=== PATIENT | female | born 1955 | race Caucasian/White ===

== ENCOUNTER 2016-12-13 09:30 | Inpatient (IN) | payer BC ==
[2016-12-11 16:01] VITALS: BMI 35.3
[2016-12-24] MEDS ORDERED: MIDAZOLAM HCL 2 MG/2 ML SINGLE DOSE VIAL ONE (12:04)
[2016-12-24] MEDS ORDERED: BUPIVACAINE HCL/PF 0.25% (2.5MG/ML) 10 ML VIAL ONE ×2 (12:50→15:32)
[2016-12-24] MEDS ORDERED: LEVOFLOXACIN 500 MG PREMIX BAG IVPB ONE (13:55)
[2016-12-24] MEDS ORDERED: SUCCINYLCHOLINE CHLORIDE 200 MG/10 ML VIAL ONE (14:13)
[2016-12-24] MEDS ORDERED: ROCURONIUM BROMIDE 50 MG/5 ML VIAL ONE (14:29)
[2016-12-24] MEDS ORDERED: HYDROmorphone HCL/PF 1 MG/ML VIAL (FOR PYXIS CHARGING ONLY) ONE (15:12)
[2016-12-24] MEDS ORDERED: BUPIVACAINE HCL/PF 0.25% (2.5MG/ML) 10 ML VIAL IJ ONE ×2 (15:34)
[2016-12-24] MEDS ORDERED: ONDANSETRON 4 MG/2 ML VIAL IVPUSH PRN (15:57)
[2016-12-24] MEDS ORDERED: ONDANSETRON 4 MG/2 ML VIAL IVPB PRN (15:58)
[2016-12-24] MEDS ORDERED: LABETALOL HCL 5 MG/1 ML (100MG/20 ML VIAL) IVPUSH ONE ×2 (15:59→17:08)
[2016-12-24] MEDS ORDERED: LACTATED RINGERS SOLUTION 1,000 ML IV SCH (16:00)
[2016-12-24] MEDS ORDERED: SODIUM CHLORIDE 1,000 ML IV SCH (16:00)
[2016-12-24] MEDS ORDERED: PROMETHAZINE HCL 25 MG/1 ML VIAL IVPB PRN (16:04)
[2016-12-24] MEDS ORDERED: HYDROmorphone HCL CARPU-JECT 2 MG/1 ML DISP.SYRIN ONE (16:41)
[2016-12-24] MEDS: HYDROmorphone HCL CARPU-JECT 1 MG/1 ML DISP.SYRIN IVPUSH PRN ×2 (16:43→16:53)
[2016-12-24 16:50] LABS: MCH 26.9 pg (25.7-33.7); MCHC 33.3 g/dl (32.0-36.0); MEAN CELL VOLUME 80.9 fl (80-96); MEAN PLT VOLUME 9.6 fl (7.5-11.1); PLATELET COUNT 209 K/MM3 (134-434); RDW 14.2 % (11.6-15.6)
[2016-12-24 17:28] LABS: ALBUMIN 3.3 g/dl (3.4-5.0); ALK PHOS 67 U/L (45-117); ANION GAP 9 (8-16); BILIRUBIN,TOTAL 0.4 mg/dL (0.2-1.0); CALCIUM 8.3 mg/dL (8.5-10.1); CO2 27 mmol/L (21-32); CREATININE 0.7 mg/dL (0.55-1.02); GLUCOSE,RANDOM 190 mg/dL (74-106); SGOT/AST 60 U/L (15-37); SGPT/ALT 56 U/L (12-78)
[2016-12-24] MEDS ORDERED: METOCLOPRAMIDE HCL INJECTION 10 MG/2 ML VIAL ONE (17:37)
[2016-12-24] MEDS: METOCLOPRAMIDE HCL INJECTION 10 MG/2 ML VIAL IVPB SCH ×3 (17:50→22:19)
[2016-12-24] MEDS: HYDROmorphone HCL CARPU-JECT 1 MG/1 ML DISP.SYRIN IVPB PRN (20:59)
[2016-12-24] MEDS: ENOXAPARIN NA (PORCINE) 40 MG/0.4 ML DISP.SYRIN SQ SCH (22:18)
[2016-12-24] MEDS: FAMOTIDINE 20 MG/50 ML IVPB 50 ML IVPB SCH (22:19)
[2016-12-25] MEDS: HYDROmorphone HCL CARPU-JECT 1 MG/1 ML DISP.SYRIN IVPB PRN ×3 (01:07→09:18)
[2016-12-25 07:20] LABS: MCH 26.4 pg (25.7-33.7); MCHC 32.6 g/dl (32.0-36.0); MEAN CELL VOLUME 80.9 fl (80-96); MEAN PLT VOLUME 9.6 fl (7.5-11.1); PLATELET COUNT 199 K/MM3 (134-434); RDW 14.3 % (11.6-15.6)
[2016-12-25 07:32] LABS: ALBUMIN 3.1 g/dl (3.4-5.0); BILIRUBIN,TOTAL 0.5 mg/dL (0.2-1.0); GLUCOSE,RANDOM 164 mg/dL (74-106); SGOT/AST 41 U/L (15-37)
[2016-12-25 07:34] LABS: ALK PHOS 57 U/L (45-117); ANION GAP 7 (8-16); CO2 29 mmol/L (21-32); CREATININE 0.8 mg/dL (0.55-1.02); SGPT/ALT 44 U/L (12-78); TOT PROT 6.4 g/dl (6.4-8.2)
[2016-12-25] MEDS: ENOXAPARIN NA (PORCINE) 40 MG/0.4 ML DISP.SYRIN SQ SCH (09:19)
[2016-12-25] MEDS: METOCLOPRAMIDE HCL INJECTION 10 MG/2 ML VIAL IVPB SCH ×2 (09:20→17:09)
[2016-12-25] MEDS ORDERED: ESCITALOPRAM OXALATE 10 MG TABLET (FP) PO ONE (10:30)
[2016-12-25] MEDS: FAMOTIDINE 20 MG/50 ML IVPB 50 ML IVPB SCH (11:35)
[2016-12-25] MEDS ORDERED: SODIUM CHLORIDE 1,000 ML IV SCH (11:45)
--- NOTE | 2016-12-25 12:18 | OP ---
DATE OF OPERATION: 12/24/2016 PREOPERATIVE DIAGNOSES: 1. Morbid obesity. 2. Diabetes mellitus. 3. Gastroesophageal reflux disease. 4. Malfunctioning implantable device secondary to gastric band. POSTOPERATIVE DIAGNOSES: 1. Morbid obesity. 2. Diabetes mellitus. 3. Gastroesophageal reflux disease. 4. Malfunctioning implantable device secondary to gastric band. 5. Abdominal adhesions. 6. Fibrous capsule around the stomach. PROCEDURE PERFORMED: 1. Laparoscopic vertical sleeve gastrectomy. 2. Excision of fibrous capsule around the stomach. 3. Laparoscopic lysis of adhesions. 4. Removal of gastric band, plus subcutaneous port component. 5. Diagnostic laparoscopy. OPERATING SURGEON: Mason Bassett MD IT BUSINESS ANALYST: Viet Charles MD ANESTHESIA: General. DESCRIPTION OF OPERATIVE PROCEDURE: The patient was brought into the operating room, placed on the OR table in the supine position. All precautions were taken initially including padding for the back and the feet, and Venodyne boots were placed on both lower extremities. At that point, the abdomen was prepped and draped in the usual manner. A Veress needle was placed in the left upper quadrant, and a pneumoperitoneum was established. A number 12 bladeless trocar was placed in the left upper quadrant. Through that trocar, a laparoscopic camera was placed. Immediately on placing the camera, noted to be a light amount of adhesions between the omentum and the anterior abdominal wall by the falciform ligament and somewhat below, going toward the umbilicus. This prevented the next 2 trocars from being placed. Therefore, a number 5 bladeless trocar was placed below the left costal margin. Using that as a working port, the adhesions were lysed between the omentum and the anterior abdominal wall, and this was done until enough clearing was developed that the next 2 trocars could be inserted. A number 15 bladeless trocar was then placed in the supraumbilical position, followed by a number 5 bladeless trocar in the right upper quadrant. A Maynor liver retractor was then placed in the epigastrium to retract the left lobe of the liver. The patient was then placed in 20-degree reverse Trendelenburg position. The band tubing was noted going to the band, and the tubing was pulled by the facilities assistant surgeon towards the patient's left side. This enabled the operating surgeon to dissect the scar tissue off the band tubing, and this continued all the way until the area of the band around the stomach. With the band being held by the facilities assistant surgeon toward the left side of the patient, the operating surgeon continued with electrocautery to dissect the scar tissue off the right side or the lesser curvature side of the band. Once all the scar tissue was cleared, the band was then freely movable. At this point, the band tubing was grabbed by the operating surgeon as the facilities assistant surgeon retracted the stomach inferiorly. Electrocautery was then used to dissect the wrap of the stomach over the band until the band was now in complete view. The band was then cut in two, and both pieces were sent off the field as specimen to Pathology. Attention was now directed to the fibrous capsule around the stomach. With the fibrous capsule being held by both the facilities assistant surgeon and the operating surgeon, a laparoscopic scissor was able to dissect the fibrous capsule off the anterior wall of the stomach. This was done initially from inferior to superior and then spread over towards the lesser curvature side so that the entire lesser curvature was now free of scar tissue on the anterior surface. At this junction, Anesthesia placed a number 40 bougie into the stomach, and it passed easily where the band had been, all the way down toward the pylorus. At this point, the pylorus was found, and 6 cm were measured proximally on the greater curve of the stomach. Here, the operating surgeon lifted the stomach toward the anterior abdominal wall as the facilities assistant surgeon retracted the gastrocolic ligament inferiorly. The LigaSure device was used to dissect the gastrocolic ligament off the greater curve of stomach. This continued in a superior and vertical direction until the final short gastric vessel between the superior pole of the spleen and the proximal fundus was divided. At this point, with the number [address] and held along the lesser curve, a series of piedad was performed, the first two being black load piedad 6-cm length along the bougie. This was followed by a series of purple load piedad, also 6 cm in length and continued until the final staple was fired in the left upper quadrant, and the greater curve was now completely detached from the lesser curve. Saline was placed around the staple line, and Anesthesia inserted air into the bougie which showed the entire stomach distended down to the pylorus. No obstruction and no leaks were noted. At this point, the bougie was removed by Anesthesia, and then, the greater curve of stomach that was resected was removed through the number 15 trocar site and sent off the field as specimen to Pathology. On direct vision, a number 15 and number 12 trocar sites were closed with EndoClose device to prevent internal hernia and to prevent bleeding. Under direct vision, all trocars were removed and pneumoperitoneum released. At this point, the right upper quadrant incision which had the subcutaneous band under it was now opened up, and dissection continued in the subcutaneous tissue with electrocautery down to the fibrous capsule around the port. The fibrous capsule was dissected off the port, and the port was then removed from the right anterior rectus muscle, sent off the field to Pathology as the rest of the specimen with the band. The port incisions were then closed with 3-0 Vicryl in subcutaneous fashion, and then all trocar sites infused with 25% Marcaine, were closed with 4-0 Biosyn in subcuticular fashion. Dressings were applied. Patient awoke from anesthesia and transferred out of the operating room to the recovery room in stable condition. Expected blood loss was 50 mL. Vani [id number]
[2016-12-25] MEDS: ACETAMINOPHEN 325 MG TABLET (FP) PO PRN ×2 (12:22→17:09)
[2016-12-25] MEDS: oxyCODONE HCL 5 MG TABLET PO PRN ×2 (12:23→17:10)
[2016-12-25 15:03] VITALS: BP 153/74; PULSE 82; TEMP 97.6
--- NOTE | 2016-12-25 16:47 | PN ---
Progress Note (short form) - Note Progress Note: POD#1 Afebrile;VSS P-78-94 BP_142/77 Pt doing well No N/V Brad PO clear liquids well P/e-Abd-all incisions clean,dry slight hematoma Left incision Wbc-12.0 H/H-11.6/35.6 UGI- no leak, no obstruction P- D/C pt home F/U in 8 days
--- NOTE | 2016-12-26 13:22 | PATH ---
Surgical Pathology Report Patient Name: ABISAI DAVEY [facility]. Rec. #: [id number] /Age/Gender: 1955 (Age: 61) / F Account: [id number] Location: 4 W TELEMETRY U Taken: 12/24/2016 Received: 12/25/2016 Reported: 12/26/2016 Physicians: Mason Bassett M.D. Specimen(s) Received A: GASTRIC BAND AND PORT B: GREATER CURVATURE OF THE STOMACH Clinical History Morbid obesity Final Diagnosis A. GASTRIC BAND AND PORT, REMOVAL: TELECOMMUNICATIONS REPAIRER (GROSS EXAM). B. STOMACH, GREATER CURVATURE, VERTICAL SLEEVE GASTRECTOMY: PORTION OF STOMACH WITH PATCHY MILD CHRONIC GASTRITIS. IMMUNOSTAIN FOR H. PYLORI IS NEGATIVE FOR ORGANISMS. Electronically Signed Kelvin Alvares M.D. Gross Description A. Received dry labeled "gastric band and port" are multiple portions of medical equipment consistent with portions of gastric band and port. There is a 10.5 x 1.8 x 1.0 cm plastic nieto, along with a 33 cm long x 0.4 cm diameter portion of plastic tubing attached to a 7 x 1.8 x 1.0 cm portion of gastric band. Also present is a 3 x 3 x 1.6 cm metallic and plastic infusion port with an attached 14 cm long x 0.4 cm in diameter portion of plastic tubing, and an additional 3.8 cm long x 0.4 cm in diameter portion of plastic tubing. This is for gross identification only. B. Received in formalin labelled "greater curvature of the stomach" is a 24 cm long x 7 cm in circumference portion of stomach consistent with a sleeve gastrectomy specimen. The serosa is smooth and glistening with focal hemorrhagic adhesions. Examination of the mucosa reveals preservation of the normal mucosal folds. Underliner sections are submitted in one cassette. [facility] [[email or web address]12/25/2016 [facility]/12/25/2016
== END 2016-12-25 18:23 | disposition home or self-care (01) | DRG 620 ==
LOC: EDSTATUS 09:30 → JSAMEDAYSX 12-24 11:11 → J4W 12-24 18:00
PROVIDERS: ADMIT Surgery; ATTEND Surgery
PROC: 0DNW4ZZ Release Peritoneum, Percutaneous Endoscopic Approach (ICD-10-PCS; 2016-12-24)
PROC: 0DB64Z3 Excision of Stomach, Percutaneous Endoscopic Approach, Vertical (ICD-10-PCS; principal; 2016-12-24 12:30)
PROC: 0DP64CZ Removal of Extraluminal Device from Stomach, Percutaneous Endoscopic Approach (ICD-10-PCS; 2016-12-24 12:30)
DX: E66.01 Morbid (severe) obesity due to excess calories (principal); T85.518A Breakdown (mechanical) of other gastrointestinal prosthetic devices, implants and grafts, initial encounter; K95.09 Other complications of gastric band procedure; Z68.38 Body mass index [BMI] 38.0-38.9, adult; K21.9 Gastro-esophageal reflux disease without esophagitis; K66.0 Peritoneal adhesions (postprocedural) (postinfection); E11.9 Type 2 diabetes mellitus without complications; Y83.8 Other surgical procedures as the cause of abnormal reaction of the patient, or of later complication, without mention of misadventure at the time of the procedure
CPT/HCPCS: 36415; 74241-TC; 80053; 85027; 86850; 86900; 86901; 88300-TC; 88305-TC; 94760